=== PATIENT | male | born 1985 | race African-American/Black ===

== ENCOUNTER 2016-05-23 10:10 | Emergency (ER) | payer SELFPAY | END 2016-05-23 12:56 | disposition home or self-care (01) | LOC: D.ER 10:10 | DX: L02.01 Cutaneous abscess of face (principal) ==

== ENCOUNTER 2017-02-27 19:45 | Emergency (ER) | payer SELFPAY | END 2017-02-27 22:57 | disposition home or self-care (01) | LOC: D.ER 19:45 | DX: M79.621 Pain in right upper arm (principal); M25.561 Pain in right knee; M79.1 Myalgia; V09.9XXA Pedestrian injured in unspecified transport accident, initial encounter; Y93.89 Activity, other specified; Y92.89 Other specified places as the place of occurrence of the external cause ==

== ENCOUNTER 2018-10-08 15:25 | Emergency (ER) | payer SELFPAY | END 2018-10-08 16:30 | disposition left against medical advice (07) | LOC: D.ER 15:25 | DX: R10.9 Unspecified abdominal pain (principal) ==